=== PATIENT | female | born 1990 | race African-American/Black ===

== ENCOUNTER → 2016-10-21 | Emergency (ER) | payer BC, MEDICAID ==
[~2016-10-21] VITALS: Ht 165.1 cm; Wt 95.3 kg
[~2016-10-21] MED LIST: KEFLEX500 MG ORAL
[2016-10-21 10:48] VITALS: BP 13/80
--- NOTE | 2016-10-21 10:55 | Emergency Room Report ---
History of Present Illness General Chief Complaint: Skin Rash/Abscess Source: Patient Present Illness HPI 26 YO F with 3 weeks "abscess" to left jaw. States intermittent fluctuation/ improvement in size with warm compresses. States had last year and took amox which helped. Denies other previous abscess, history of DM. Has known dental caries, but denies pain to teeth, gum abscesses. Able to eat/drink normally. Denies fever/chills. Allergies: Coded Allergies: PENICILLINS (Verified Allergy, Unknown, 10/21/16) Patient History Past Surgical History: none Pertinent Family History: none Social History: Denies: alcohol use, drug use, smoking Last Menstrual Period: last week Now: No Immunizations: UTD Reviewed Nursing Documentation: PMH: Agreed, PSxH: Agreed Nursing Documentation-PMH Past Medical History: No Stated History Review of Systems All Other Systems: negative except mentioned in HPI Physical Exam Vital Signs Date Time Temp Pulse Resp B/P Pulse Ox O2 Delivery O2 Flow Rate FiO2 10/21/16 09:12 98.1 79 18 126/90 99 Room Air Sp02 EP Interpretation: reviewed, normal General Appearance: normal inspection, well appearing, no apparent distress, alert Head: normocephalic, atraumatic Eyes: bilateral eye EOMI, bilateral eye PERRL ENT: normal ENT inspection, hearing grossly normal, normal voice Neck: normal inspection, full range of motion, supple, no bony tend Respiratory: normal inspection, lungs clear, normal breath sounds, no respiratory distress, no retraction, no wheezing Cardiovascular #1: regular rate, rhythm, no edema Gastrointestinal: normal inspection, normal bowel sounds, non tender, soft, no guarding, no hernia Genitourinary: no CVA tenderness Musculoskeletal: normal inspection, back normal, normal range of motion, Gómez' s Sign negative Neurologic: normal inspection, alert, oriented x3, responsive, snowboard designer III-XII nml as tested, motor strength/tone normal, speech normal Psychiatric: normal inspection, judgement/insight normal, mood/affect normal Skin: normal inspection, normal color, other - Left lateral jaw: fluctuant 1.5cm abscess. No overlying erythema. Mild ttp Lymphatic: normal inspection Medical Decision Making Diagnostic Impression: Primary Impression: Abscess ER Course left sided facial abscess. VSS. Afebrile. Airway patent. No ludwigs. Offered I&D here in ED but given location patient prefers Oral Abx and warm compresses Will return to ED for I&D if no improvement DC home Last Vital Signs Date Time Temp Pulse Resp B/P Pulse Ox O2 Delivery O2 Flow Rate FiO2 10/21/16 10:50 98.0 78 16 99 10/21/16 10:48 13/80 Room Air Status: improved Disposition: HOME, SELF-CARE Condition: Improved Scripts Cephalexin* (KEFLEX*) 500 Mg Capsule 500 MG ORAL Q6H for 7 Days, #28 CAP 0 Refills Prov: GIRISH MARY M.D. 10/21/16 Patient Instructions: Abscess Additional Instructions: - Keep applying hot compress to abscess 3x a day for 1 week - Take Antibiotic as prescribed - Return to ER for drainage if no improvement after antibiotics GIRISH MARY M.D. Oct 21, 2016 10:55
== END | disposition home or self-care (01) ==
LOC: EMR 10:05
DX: M27.2 Inflammatory conditions of jaws (principal); E11.9 Type 2 diabetes mellitus without complications; Z88.0 Allergy status to penicillin
CPT/HCPCS: 99283

== ENCOUNTER 2017-01-21 02:29 | Emergency (ER) | payer BC, MEDICAID ==
[~2017-01-21] VITALS: Ht 167.6 cm; Wt 97.5 kg
[2017-01-21] MEDS ORDERED: Ketorolac 60mg Inj IM ONE (03:00)
[2017-01-21] MEDS ORDERED: Tylenol #3 tab (300mg/30mg) ORAL ONE (03:00)
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
[2017-01-21] MEDS ORDERED: ROBAXIN-750750 MG PO (03:41)
[2017-01-21] MEDS ORDERED: IBUPROFEN600 MG ORAL (03:41)
[2017-01-21 03:50] VITALS: BP 112/80
[2017-01-21 03:51] VITALS: BP 112/80
--- NOTE | 2017-01-21 09:23 | Diagnostic Imaging Report ---
Indication: Dyspnea Comparison: None A single view chest radiograph was obtained. Findings: Cardiomediastinal appearance is within normal limits for age. Pulmonary vascularity is appropriate. The diaphragmatic contour is smooth and costophrenic angles are sharp. No pleural effusions are identified. The bones are unremarkable. Impression: No acute findings
--- NOTE | 2017-01-21 09:35 | Diagnostic Imaging Report ---
Indication: Pain Findings: 3 views of the left shoulder were obtained. Alignment of the left shoulder is normal. No acute fracture is identified. Soft tissues are unremarkable. Impression: Negative left shoulder examination
== END 2017-01-21 03:52 | disposition home or self-care (01) ==
LOC: EMR 03:00
DX: S20.212A Contusion of left front wall of thorax, initial encounter (principal); S20.211A Contusion of right front wall of thorax, initial encounter; W50.0XXA Accidental hit or strike by another person, initial encounter; Y92.89 Other specified places as the place of occurrence of the external cause; S43.492A Other sprain of left shoulder joint, initial encounter; Z88.0 Allergy status to penicillin
CPT/HCPCS: 71010; 96372; 99284

== ENCOUNTER 2017-02-19 16:25 | Emergency (ER) | payer BC, MEDICAID ==
[~2017-02-19] VITALS: Ht 165.1 cm; Wt 108.4 kg
[~2017-02-19 16:25] MED LIST changes: +IBUPROFEN600 MG ORAL; +ROBAXIN-750750 MG PO
--- NOTE | 2017-02-19 16:42 | Emergency Room Report ---
History of Present Illness General Chief Complaint: Toothache Source: Patient Present Illness HPI 26 YO Female presents to the ED c/o : Tooth pain x 2 days 10/10 pain with hx of previous abscess for which she did not follow up with dentist. pt denies N/V/F/ C. Pt. states she still has a broken tooth on the left lower jaw. however she also states the swelling gets worse when she eats, then resolves mildly. pt. reports tenderness to the outer left lower chin/jaw area, denies tender lymphnodes, denies trauma or fall. denies rashes. Denies CP, Palpitations, LOC, AMS, dizziness, Changes in Vision, Sensation, paresthesias, or a sudden severe headache. Allergies: Coded Allergies: PENICILLINS (Verified Allergy, Unknown, 10/21/16) Patient History Past Medical History: see triage record Past Surgical History: none Pertinent Family History: none Last Menstrual Period: 02/02/17 Now: No Immunizations: UTD Reviewed Nursing Documentation: PMH: Agreed, PSxH: Agreed Nursing Documentation-PMH Past Medical History: No Stated History Review of Systems All Other Systems: negative except mentioned in HPI Physical Exam Vital Signs Date Time Temp Pulse Resp B/P Pulse Ox O2 Delivery O2 Flow Rate FiO2 02/19/17 16:32 98.1 72 14 106/61 100 Room Air Medical Decision Making PA Attestation Dr. Yanes is my supervising Physician whom patient management has been discussed with. Diagnostic Impression: Primary Impression: Abscess ER Course 26 YO Female presents to the ED c/o : Tooth pain x 2 days 10/10 pain with hx of previous abscess for which she did not follow up with dentist. pt denies N/V/F/ C. Pt. states she still has a broken tooth on the left lower jaw. however she also states the swelling gets worse when she eats, then resolves mildly. pt. reports tenderness to the outer left lower chin/jaw area, denies tender lymph nodes, denies trauma or fall. denies rashes. Denies CP, Palpitations, LOC, AMS, dizziness, Changes in Vision, Sensation, paresthesias, or a sudden severe headache. Ddx considered but are not limited to:tooth abscess, tooth avulsion, PARTS PROFESSIONAL, Ludwigs angina, cellulitis Vital signs: are WNL, pt. is afebrile H&PE are most consistent with: Tooth infection / abscess , somewhat suspicious for sialoadenitis due to HPI of getting worse with eating. ORDERS: None required at this time as the diagnosis is clinical ED INTERVENTIONS: none required at this time. - pt declines I & D. --Pt. given list of Dental clinics in the area. for follow up. DISCHARGE: At this time pt. is stable for d/c to home. Will provide printed patient care instructions, and any necessary prescriptions. Care plan and follow up instructions have been discussed with the patient prior to discharge. Last Vital Signs Date Time Temp Pulse Resp B/P Pulse Ox O2 Delivery O2 Flow Rate FiO2 02/19/17 16:32 98.1 72 14 106/61 100 Room Air Disposition: HOME, SELF-CARE Condition: Stable Scripts Ibuprofen* (MOTRIN*) 600 Mg Tablet 600 MG ORAL THREE TIMES A DAY, #30 TAB 0 Refills Prov: Jaqueline Bach 02/19/17 Cephalexin* (KEFLEX*) 500 Mg Capsule 500 MG ORAL EVERY 12 HOURS for 7 Days, #14 CAP 0 Refills Prov: Jaqueline Bach 02/19/17 Patient Instructions: Dental Pain, Salivary Stone Additional Instructions: Take medications as directed. Follow up with a DENTIST in 3-5 days, even if your symptoms have resolved. * * --Please review list of FREE/Reduced cost DENTAL clinics, if you do not already have a DENTIST - Please note that this Emergency Department Report was dictated using [employer] professor technology software, occasionally this can lead to erroneous entry secondary to interpretation by the dictation equipment. Jaqueline Bach Feb 19, 2017 16:42
[2017-02-19] MEDS ORDERED: CEPHALEXIN500 MG ORAL (16:53)
[2017-02-19] MEDS ORDERED: IBUPROFEN600 MG ORAL (16:53)
[2017-02-19 17:11] VITALS: BP 106/61
== END 2017-02-19 17:11 | disposition home or self-care (01) ==
LOC: EMR 16:45
DX: K04.7 Periapical abscess without sinus (principal); Z88.0 Allergy status to penicillin
CPT/HCPCS: 99284

== ENCOUNTER → 2020-06-28 | Emergency (ER) | payer BC, MEDICAID ==
[~2020-06-28] VITALS: Ht 167.6 cm; Wt 132.9 kg
[~2020-06-28] MED LIST changes: +ACETAMINOPHEN-1 EAC1 ORAL; +BACITRACIN15 GM TOPIC; +Bacitracin Oint UD TOPIC ONE; +CEPHALEXIN500 MG ORAL; +IBUPROFEN600 M1 ORAL; +Lidocaine 2% MPF 5ml Vial INJ ONE; +Tylenol #3 tab (300mg/30mg) ORAL ONE
[2020-06-28 13:35] VITALS: BP 114/72
--- NOTE | 2020-06-28 13:35 | NUR ---
ED Nurse Note: Pt walked in to ED from home c/o lacerations on her left second, third, fourth fingers. Patient tried to catch a vase and it sliced her fingers. Tdap is up to date. Not actively bleeding. ERPA at bedside.
--- NOTE | 2020-06-28 13:52 | Emergency Room Report ---
History of Present Illness General Chief Complaint: Laceration Source: Patient Present Illness HPI 29-year-old female presents to the emergency department complaining of 10 out of 10 severity pain to the left hand specifically the third and fourth digits. Patient reports that a vase was falling and she attempted to catch it and it broke into large pieces and cut her hand. Patient reports she is able to open and close her left hand however she does have some pain. She denies suspicion of retained foreign body. Patient reiterates that the vase broke into large pieces. Patient states that she is up-to-date with her tetanus and has received her tetanus vaccine within the last 10 years. Patient is right-hand dominant. She reports some mild paresthesias proximal to the lacerations. She denies paresthesias to the distal fingertips. She does not take any blood thinning medications. She denies or suspicion of and reports she is currently on her period. She denies any other aggravating or relieving factors at this time. Allergies: Coded Allergies: PENICILLINS (Verified Allergy, Unknown, 10/21/16) COVID-19 Screening Contact w/high risk pt: No Experienced COVID-19 symptoms?: No COVID-19 Testing performed BINDER FIXER: No Patient History Past Medical History: see triage record Past Surgical History: none Pertinent Family History: none Last Menstrual Period: currently on her period Now: No Reviewed Nursing Documentation: PMH: Agreed; PSxH: Agreed Nursing Documentation-PMH Past Medical History: No Stated History Review of Systems All Other Systems: negative except mentioned in HPI Physical Exam Vital Signs Date Time Temp Pulse Resp B/P (MAP) Pulse Ox O2 Delivery O2 Flow Rate FiO2 06/28/20 13:29 98.8 82 15 114/72 (86) 97 Room Air Medical Decision Making PA Attestation Dr. Reardon Is my supervising Physician whom patient management has been discussed with. Diagnostic Impression: Primary Impression: Laceration ER Course 29-year-old female presents to the emergency department complaining of 10 out of 10 severity pain to the left hand specifically the third and fourth digits. Patient reports that a vase was falling and she attempted to catch it and it broke into large pieces and cut her hand. Patient reports she is able to open and close her left hand however she does have some pain. She denies suspicion of retained foreign body. Patient reiterates that the vase broke into large pieces. Patient states that she is up-to-date with her tetanus and has received her tetanus vaccine within the last 10 years. Patient is right-hand dominant. She reports some mild paresthesias proximal to the lacerations. She denies paresthesias to the distal fingertips. She does not take any blood thinning medications. She denies or suspicion of and reports she is currently on her period. She denies any other aggravating or relieving factors at this time. Ddx considered but are not limited to laceration, tendon injury, cellulitis, amputation Vital signs: are WNL, pt. is afebrile H&PE are most consistent with: -Left third digit volar laceration approx 1.5 cm in length -Left fourth digit, volar aspect laceration approx 1 cm in length ORDERS: --X-ray 3 views of the left fingers: No evidence of visible radiopaque foreign body. ED INTERVENTIONS: -Tetanus vaccine was administered as pt. vaccination status was unknown. - The wound was copiously irrigated with normal saline, and explored for foreign body for which no FB was found. - pt. is anesthetized with 1%lidocaine w. epi. - The wound was approximated and closed using [ ] interrupted [ ] Ethilon sutures. -Bacitracin and sterile dressing is applied. - Finger Splint applied to the left third digit by RN. Pt. remains neurovascularly intact. - Finger Splint applied to the left fourth digit by RN. Pt. remains neurovascularly intact. Discussed with patient: That we make every effort to approximate the laceration as best as we can so that scarring will be as cosmetically pleasing as possible with our limited cosmetic skill set in the Emergency dept. Regardless of our best efforts there will be scarring after laceration repair. The extent of scarring is unknown at this time. DISCHARGE: At this time pt. is stable for d/c to home. Will provide printed patient care instructions, and any necessary prescriptions. Care plan and follow up instructions have been discussed with the patient prior to discharge. Last Vital Signs Date Time Temp Pulse Resp B/P (MAP) Pulse Ox O2 Delivery O2 Flow Rate FiO2 06/28/20 13:35 98.8 82 15 114/72 97 Room Air Disposition: HOME, SELF-CARE Condition: Stable Scripts Bacitracin (Bacitracin) 28.4 Gm Oint...g. 1 APPLIC TOPIC THREE TIMES A DAY, #28.3 GM Prov: Jaqueline Bach 06/28/20 Ibuprofen* (MOTRIN*) 600 Mg Tablet 600 MG ORAL THREE TIMES A DAY, #20 TAB Prov: Jaqueline Bach 06/28/20 Acetaminophen With Codeine (T#3) (TYLENOL #3 TAB*) Y Tab 1 TAB ORAL Q6H PRN for For Pain, #5 TAB Prov: Jaqueline Bach 06/28/20 Cephalexin* (KEFLEX*) 500 Mg Capsule 500 MG ORAL EVERY 12 HOURS for 7 Days, #14 CAP 0 Refills Prov: Jaqueline Bach 06/28/20 Referrals: [facility] Patient Instructions: Laceration Care, Adult Additional Instructions: Take medications as directed. SUTURES REMOVED IN 10-14 Days. Keep clean and dry. apply ointments sparingly just once per day. Follow up with a Primary Care Provider in 3-5 days, even if your symptoms have resolved. --Please review list of primary care clinics, if you do not already have a primary care provider Return sooner to ED if new symptoms occur, or current symptoms become worse. Do not drink alcohol, drive, or operate heavy machinery while taking Tylenol # 3 as this may cause drowsiness. - Please note that this Emergency Department Report was dictated using [employer] mechanic technology software, occasionally this can lead to erroneous entry secondary to interpretation by the dictation equipment. Jaqueline Bach Jun 28, 2020 13:52
--- NOTE | 2020-06-28 14:08 | NUR ---
ED Nurse Note: Xray done at bedside.
--- NOTE | 2020-06-28 15:28 | Diagnostic Imaging Report ---
Indication: Laceration, pain Technique: 3 views of the left third and fourth fingers Comparison: none Findings: There is a soft tissue defect of the anterior aspect of the fourth digit at the level of middle phalanx. No underlying foreign body demonstrated. No underlying bony disruption. No acute fracture. No dislocation. Impression: Evidence of soft tissue injury. No acute bony trauma or radiopaque foreign body
[2020-06-28 16:28] VITALS: BP 110/69
--- NOTE | 2020-06-28 16:28 | NUR ---
ED Nurse Note: Pt cleared by ERPA for discharge. DC instructions was given and explained to pt and verbalized understanding of teachings. prescription sent to the pharmacy. All medical deviecs such as ID band removed. Pt is AAO x4, ambulatory and left with all personal belongings.
== END | disposition home or self-care (01) ==
LOC: EMR 14:04
DX: S61.213A Laceration without foreign body of left middle finger without damage to nail, initial encounter (principal); S61.215A Laceration without foreign body of left ring finger without damage to nail, initial encounter; W26.8XXA Contact with other sharp object(s), not elsewhere classified, initial encounter; Y93.89 Activity, other specified; Y92.9 Unspecified place or not applicable; Z88.0 Allergy status to penicillin
CPT/HCPCS: 99283